=== PATIENT | female | born 1995 ===

== ENCOUNTER → 2019-01-03 | Outpatient (CLI) | payer SELFPAY ==
[2019-01-04 14:08] LABS: HPV 16 Negative (Negative); HPV 18 Negative (Negative); HPV OTHER HR TYPES Negative (Negative)
== END ==
LOC: LAB SHORT 12:32 → LAB 12:32
PROVIDERS: Registered Nurse Community Health
DX: Z12.4 Encounter for screening for malignant neoplasm of cervix (principal)
CPT/HCPCS: 87624; G0123